=== PATIENT | female | born 1990 | race Caucasian/White ===

== ENCOUNTER 2018-12-03 11:03 | Outpatient (CLI) | payer OTHER, BC ==
[2018-12-03 11:53] VITALS: BP 128/76; PULSE 98; RESP 16; TEMP 96.3
--- NOTE | 2018-12-21 14:09 | P.MSEPDOC ---
Presenting Problems - Arrival Data Date of Arrival on Unit: 12/03/18 Time of Arrival on Unit: 11:03 Mode of Transport: Ambulatory - Complaint OB-Reason for Admission/Chief Complaint: Rule Out PROM Comment: Leaking for "several days" Medical History - Information : 2 Para: 1 Term: 1 : 0 Abortions: Spontaneous or Elective: 0 Number of Living Children: 1 - Gestational Age Gestational Age by DINESH (wks/days): 33 Weeks and 4 Days Review of Systems - Review of Systems Constitutional: No problems Breast: No problems ENT: No problems Cardiovascular: No problems Respiratory: No problems Gastrointestinal: No problems Genitourinary: No problems Musculoskeletal: No problems Neurological: No problems Skin: No problems Vital Signs - Temperature Temperature: 96.3 F Temperature Source: Temporal Artery Scan - Pulse Right Sitting Brachial Pulse Rate: 98 Pulse Assessment Method: Automatic Cuff - Respirations Respiratory Rate: 16 Oxygen Delivery Method: Room Air O2 Sat by Pulse Oximetry: 98 - Blood Pressure Right Arm Sitting Blood Pressure: 128/76 Blood Pressure Mean: 93 Blood Pressure Source: Automatic Cuff Medical Screen Scoring (Pre) - Cervical Exam Dilation: Exam Deferred Effacement: Exam Deferred Membranes: Intact - Uterine Contractions Frequency: N/A Duration: N/A Intensity: N/A - Maternal Vital Signs Maternal Temperature: N/A Maternal Blood Pressure: N/A Signs of Preeclampsia: N/A Maternal Respirations: N/A - Maternal Trauma Maternal Trauma: N/A - Assessment - Baby A Baseline FHR: 135 Heart Rate - NICHD Category: Category I (Normal) = 0 NST: Reactive Position: N/A Station: N/A - Total Score - Baby A Total Score - Baby A: 0 - Total Score - Baby B Total Score - Baby B: 0 - Total Score - Baby C Total Score - Baby C: 0 - Level of Risk - Baby A Level of Risk - Baby A: Low (0-5) - Level of Risk - Baby B Level of Risk - Baby B: Low (0-5) - Level of Risk - Baby C Level of Risk - Baby C: Low (0-5) Physician Notification (Pre) - Physician Notified Physician Notified Date: 12/03/18 Physician Notified Time: 11:41 Physician/Practitioner Notifed:: Sony Spoke With: Sony - Notification Comment Comment: Spk c\\Dr. Cardoza, advsd , 33 07/27, [place], pt of Dr. Marie in [place], presents with complaint of LOF for several days. Amnisure negative, reactive NST, white mucus present in vaginal canal, no odor, hx of BV in . States to d/c home, follow up with current OB. Disposition - Disposition OB Disposition: Discharge to home, Written follow up instructions reviewed Discharge Date: 12/03/18 Discharge Time: 11:45 I agree with the RN Medical Screening Exam: Yes Risk & Benefit of care provided described in d/c instruction: Yes Diagnosis: FALSE LABOR BEFORE 37 COMPLETED WEEKS OF GEST, THIRD TRI
== END 2018-12-03 11:45 | disposition home or self-care (01) ==
LOC: FBPOP 11:03
PROVIDERS: ATTEND Obstetrics & Gynecology Obstetrics
DX: O47.03 False labor before 37 completed weeks of gestation, third trimester (principal); Z3A.33 33 weeks gestation of pregnancy
CPT/HCPCS: 59025; 84112; G0463; 99213

== ENCOUNTER 2019-01-07 23:35 | Inpatient (IN) | payer BC, OTHER ==
[2019-01-08 01:53] LABS: Appearance,Urine Cloudy (Clear); Bacteria,Urine Few /hpf; Bilirubin,Urine Negative (Negative); Blood,Urine Large (Negative); Color,Urine Yellow; Glucose,Urine (UA) Negative (Negative); Ketones,Urine Negative (Negative); Leukocyte Esterase,Urine Large (Negative); Mucus,Urine Many /hpf; Nitrite,Urine Negative (Negative); PH, Urine 5.5 (5.0-8.0); Protein,Urine 1+ (Negative); RBC,Urine 177 /hpf (0-5); Specific Gravity,Urine 1.022 (1.001-1.035); Squamous Epithelial Cell,Urine 12 /hpf (0-4); Urobilinogen,Urine <2.0 mg/dL (<2.0); WBC,Urine >182 /hpf (0-5)
[2019-01-08 02:22] LABS: Basophils % (A) 0 %; Eosinophils % (A) 0 %; HCT 35.3 % (34.0-46.0); HGB 11.4 gm/dL (11.4-16.0); Lymphocytes # (A) 1.8 k/uL (1.0-4.8); Lymphocytes % (A) 16 %; MCH 29.7 pg (25.0-35.0); MCHC 32.4 g/dL (31.0-37.0); MCV 91.8 fL (80.0-100.0); Mean Platelet Volume 9.5; Monocytes # (A) 0.7 k/uL (0-1.0); Monocytes % (A) 6 %; Neutrophils # (A) 8.5 k/uL (1.3-7.7); Neutrophils % (A) 76 %; Platelet Count 143 k/uL (150-450); RBC 3.85 m/uL (3.80-5.40); RDW 13.5 % (11.5-15.5); WBC 11.3 k/uL (3.8-10.6)
[2019-01-08 02:40] LABS: ALT 18 U/L (9-52); AST 17 U/L (14-36); African American GFR (CKD) >90 (>60 ml/min/1.73 sqM); Blood Urea Nitrogen 9 mg/dL (7-17); LDH 393 U/L (313-618); Uric Acid 4.9 mg/dL (3.7-7.4)
[2019-01-08] MEDS ORDERED: METHYLERGONOVINE 0.2 MG/ML 1 ML AMP IM PRN (03:14)
[2019-01-08] MEDS ORDERED: LIDOCAINE 0.5% (PF) 5 MG/ML (50 ML SDV) SQ PRN (03:14)
[2019-01-08] MEDS ORDERED: CARBOPROST TROMETHAMINE 250 MCG/ML 1 ML AMP IM PRN (03:14)
[2019-01-08] MEDS ORDERED: TERBUTALINE 1 MG/ML VIAL SQ PRN (03:14)
[2019-01-08] MEDS ORDERED: OXYTOCIN 10 UNIT/ML 1 ML VIAL IM PRN (03:14)
[2019-01-08] MEDS ORDERED: LACTATED RINGERS 1,000 ML IV SCH (03:15)
[2019-01-08] MEDS ORDERED: OXYTOCIN 30 UNITS/500 ML NS 30 UNIT in SALINE 1 500ML.BAG IV SCH (03:15)
--- NOTE | 2019-01-08 03:28 | P.HPOB ---
History of Present Illness H&P Date: 01/08/19 Chief Complaint: Contractions, elevated blood pressure This patient is a 28-year-old 2 para 1 female with stated estimated date of confinement 01/17/2019 estimated gestational age 38-5/7 weeks who presents to labor and delivery with complaints of contractions. Patient's had no care here locally she states that she sees a doctor in [place] and was scheduled to be induced on Saturday secondary to hypertension. Patient presented to our labor and delivery because she did not feel that she could drive to [place]. Patient's cervix on admission was 3-4 cm dilated 70 irregular contractions or initial blood pressures were elevated with diastolics in the 90s. Patient states that her doctor did preeclampsia labs proximally 9 days ago that were normal but she's had some blood pressure elevations in the . Laboratory here shows platelets of 143 and 1+ protein, although the urine does appear to be contaminated. Since the patient is beyond 37 weeks and has elevated blood pressures, I have advised to proceed with delivery at this time. Recheck her cervix shows be 5 cm dilated she may be in early labor. Patient states that her care otherwise has been uncomplicated. I do not have a copy currently of her but I did call the hospital where she is going to deliver and I am having him fax me the results of her flow sheet. Review of Systems Genitourinary: Reports Menstruation: Reports amenorrhea Past Medical History Past Medical History: No Reported History History of Any Multi-Drug Resistant Organisms: None Reported Past Surgical History: No Surgical Hx Reported Past Anesthesia/Blood Transfusion Reactions: No Reported Reaction Past Psychological History: No Psychological Hx Reported Smoking Status: Never smoker Past Alcohol Use History: None Reported Past Drug Use History: None Reported - Past Family History Mother Family Medical History: Hypertension Medications and Allergies Home Medications Medication Instructions Recorded Confirmed Type Dfn-Qxiv-Wonzy Acid 1 each PO DAILY 09/28/13 01/08/19 History [-U Capsule (formulary)] Allergies Allergy/AdvReac Type Severity Reaction Status Date / Time No Known Allergies Allergy Verified 01/08/19 00:06 Exam Vital Signs Temp Pulse Resp BP 01/08/19 00:07 96.4 F L 90 16 135/91 Intake and Output 01/07/19 01/07/19 01/08/19 14:59 22:59 06:59 Other: Weight 99.79 kg - OBG Physical Exam Abdomen: bowel sounds normal, no diffuse tenderness, no bruit present, no guarding noted, no hepatomegaly, no splenomegaly, no mass Vulva: both: normal Vagina: normal moisture, no discharge Cervix: no lesion (5 cm 80% effaced -2 station), no discharge Uterus: enlarged Results Result Diagrams: 01/08/19 02:04 01/08/19 02:04 Abnormal Lab Results - Last 24 Hours (Table) 01/08/19 01/08/19 Range/Units 01:23 02:04 WBC 11.3 H (3.8-10.6) k/uL Plt Count 143 L (150-450) k/uL Neutrophils # 8.5 H (1.3-7.7) k/uL Urine Appearance Cloudy H (Clear) Urine Protein 1+ H (Negative) Urine Blood Large H (Negative) Ur Leukocyte Esterase Large H (Negative) Urine RBC 177 H (0-5) /hpf Urine WBC >182 H (0-5) /hpf Urine WBC Clumps Few H (None) /hpf Ur Squamous Epith Cells 12 H (0-4) /hpf Urine Bacteria Few H (None) /hpf Urine Mucus Many H (None) /hpf Assessment and Plan Assessment: This is a 28-year-old 2 para 1 female 38-5/7 weeks' gestation admitted to labor and delivery with complaint of contractions. Patient is possibly in early labor but she's had some elevated diastolic blood pressures and platelets 143 with 1+ proteinuria therefore recommended proceed with delivery or augmentat ion of labor. She's had no care here so we'll try to obtain those records. At this time are anticipating a vaginal delivery. (1) 38 weeks gestation of Current Visit: Yes Status: Acute Code(s): Z3A.38 - 38 WEEKS GESTATION OF SNOMED Code(s): 23793047 (2) Gestational hypertension Current Visit: Yes Status: Acute Code(s): O13.9 - GESTATIONAL HTN W/O SIGNI FICANT PROTEINURIA, UNSP TRIMESTER SNOMED Code(s): 048573339
--- NOTE | 2019-01-08 03:29 | P.MSEPDOC ---
Presenting Problems - Arrival Data Date of Arrival on Unit: 01/07/19 Time of Arrival on Unit: 23:39 Mode of Transport: Wheelchair - Complaint OB-Reason for Admission/Chief Complaint: Possible Onset of Labor Comment: contractions throughout day every 5 minutes for last few hours. Medical History - Information : 2 Para: 1 Term: 1 : 0 Abortions: Spontaneous or Elective: 0 Number of Living Children: 1 - Gestational Age Gestational Age by DINESH (wks/days): 38 Weeks and 5 Days Review of Systems - Review of Systems Constitutional: No problems Breast: No problems ENT: No problems Cardiovascular: No problems Respiratory: No problems Gastrointestinal: No problems Genitourinary: No problems Musculoskeletal: No problems Neurological: No problems Skin: No problems Vital Signs - Temperature Temperature: 96.4 F Temperature Source: Temporal Artery Scan - Pulse Right Sitting Brachial Pulse Rate: 90 Pulse Assessment Method: Automatic Cuff - Respirations Respiratory Rate: 16 Oxygen Delivery Method: Room Air - Blood Pressure Right Arm Sitting Blood Pressure: 135/91 Blood Pressure Mean: 105 Blood Pressure Source: Automatic Cuff Medical Screen Scoring (Pre) - Cervical Exam Dilation: 1-3 cm = 1 Effacement: More than 50% = 2 Membranes: Intact - Uterine Contractions Frequency: > or = 36 weeks =2 Duration: > 40 seconds = 2 Intensity: N/A - Maternal Vital Signs Maternal Temperature: N/A Maternal Blood Pressure: Diastolic > 89 = 1 Signs of Preeclampsia: N/A Maternal Respirations: N/A - Maternal Trauma Maternal Trauma: N/A - Assessment - Baby A Baseline FHR: 125 Heart Rate - NICHD Category: Category I (Normal) = 0 NST: Reactive Position: N/A Station: N/A - Total Score - Baby A Total Score - Baby A: 8 - Total Score - Baby B Total Score - Baby B: 8 - Total Score - Baby C Total Score - Baby C: 8 - Level of Risk - Baby A Level of Risk - Baby A: Medium (6-9) - Level of Risk - Baby B Level of Risk - Baby B: Medium (6-9) - Level of Risk - Baby C Level of Risk - Baby C: Medium (6-9) Physician Notification (Pre) - Physician Notified Physician Notified Date: 01/08/19 I agree with the RN Medical Screening Exam: Yes Risk & Benefit of care provided described in d/c instruction: Yes Diagnosis: GESTATIONAL HTN W/O SIGNIFICANT PROTEINURIA, THIRD TRIMESTER
[2019-01-08] MEDS ORDERED: AMPICILLIN 2,000 MG in SODIUM CHLORIDE 0.9% 100 ML IVPB ONE (03:30)
[2019-01-08 03:52] VITALS: BMI 34.4
[2019-01-08] MEDS ORDERED: BUTORPHANOL 1 MG/ML 1 ML VIAL IV PRN (04:17)
[2019-01-08] MEDS ORDERED: WITCH HAZEL 1 EACH MED..PAD TOPICAL PRN (05:33)
[2019-01-08] MEDS ORDERED: ACETAMINOPHEN TAB 325 MG TAB PO PRN (05:33)
[2019-01-08] MEDS ORDERED: BENZOCAINE/MENTHOL SPRAY 1 GM/SPRAY AEROSOL TOPICAL PRN (05:33)
[2019-01-08] MEDS ORDERED: diphenhydrAMINE 25 MG CAP PO PRN (05:33)
[2019-01-08] MEDS ORDERED: SIMETHICONE 80 MG CHEWABLE PO PRN (05:33)
[2019-01-08] MEDS ORDERED: ZOLPIDEM 5 MG TAB PO PRN (05:33)
[2019-01-08] MEDS ORDERED: HYDROCORTISONE 2.5% RECTAL CREAM 30 GM TUBE RECTAL PRN (05:33)
[2019-01-08] MEDS ORDERED: LANOLIN CREAM 5 GM TUBE TOPICAL PRN (05:33)
[2019-01-08] MEDS ORDERED: Rhogam IMMUNE GLOBULIN 1,500 UNIT/1 ML IM ONE (05:33)
[2019-01-08] MEDS ORDERED: diphenhydrAMINE 50 MG/ML 1 ML VIAL IVP PRN (05:33)
[2019-01-08] MEDS ORDERED: BISACODYL 10 MG SUPP RECTAL PRN (05:33)
--- NOTE | 2019-01-08 05:39 | P.PROBDLV ---
Vaginal Delivery Note - . Vaginal Delivery Note: Normal spontaneous vaginal delivery viable male infant Apgars 8 and 9 delivery time is 0512 hours. Please see dictated H&P for intimate details of this patient's admission. Brief summary is a 28-year-old 2 para 1 female 38-5/7 weeks who is admitted to this hospital with no care here for complaints of contractions found to have some mild blood pressure elevations. Patient is 5 cm dilated has artificial rupture membranes for clear fluid. Labor progresses and she received one dose of intrapartum Stadol. Patient gets to complete pushes the head to the perineum. Posterior perineum is supported we have controlled delivery of the infant's head over the intact perineum. Mouth and nares are bulb suctioned. There is no evidence of a nuchal cord. With gentle downward traction we have delivery the anterior and posterior shoulder and rest this infant's body. This is a vigorous viable male infant Apgars are 8 and 9 delivery time is 0512 hours. After delivery of the infant the umbilical cord is allowed to quit pulsating, it is then doubly clamped and cut. The placenta spontaneously delivered intact. Estimated blood loss is 150 mL. Inspection of perineum shows a left perineal laceration that is mobile first-degree in nature and is repaired with 3-0 Vicryl usual fashion excellent reapproximation is noted. Of note the patient did put her IV during pushing an IV was immediately placed and Pitocin started after delivery of the placenta. All counts are correct 3. There are no complications. and mother stable delivery room.
[2019-01-08] MEDS ORDERED: OXYTOCIN 20 UNITS/1000 ML NS 1,000 ML IV SCH (05:45)
[2019-01-08] MEDS ORDERED: AMPICILLIN 1,000 MG in SODIUM CHLORIDE 0.9% 50 ML IVPB SCH (07:30)
[2019-01-08] MEDS: SENNOSIDES-DOCUSATE SODIUM 1 EACH TAB PO SCH ×2 (12:35→19:10)
[2019-01-08] MEDS: IBUPROFEN 600 MG TAB PO PRN ×2 (12:42→19:09)
--- NOTE | 2019-01-09 06:33 | P.PNOBGVD ---
Subjective - Subjective Patient reports: Reports appetite normal, Reports voiding normally, Reports pain well controlled, Reports ambulating normally : doing well Objective - Latest Vital Signs Latest vital signs: Vital Signs Temp Pulse Resp BP Pulse Ox 01/09/19 00:00 97.9 F 80 16 130/76 97 01/08/19 16:00 99.1 F 142 H 50 H 01/08/19 12:00 98.6 F 85 16 139/76 01/08/19 07:34 97.8 F 85 16 136/82 01/08/19 07:00 98.1 F 86 16 129/78 Intake and Output 01/08/19 01/08/19 01/09/19 14:59 22:59 06:59 Other: # Voids 1 1 - Exam Lungs: bilateral: normal Chest: Normal S1, Normal S2 Extremities: Present: normal Abdomen: Present: normal appearance, soft Uterus: Present: normal, firm Assessment and Plan Assessment: day #1. Patient is resting without complaints and wishes to go home. Vital signs are stable she is afebrile. Uterus is firm nontender and she is having normal lochia. My impression is this is a normal course. Plan is to continue routine care discharge home today. Patient will follow up with her physician that she received her care with. (1) 38 weeks gestation of Current Visit: Yes Status: Acute Code(s): Z3A.38 - 38 WEEKS GESTATION OF SNOMED Code(s): 63256330 (2) Gestational hypertension Current Visit: Yes Status: Acute Code(s): O13.9 - GESTATIONAL HTN W/O SIGNIFICANT PROTEINURIA, UNSP TRIMESTER SNOMED Code(s): 424485332
--- NOTE | 2019-01-09 06:37 | P.DS ---
Providers Date of admission: 01/08/19 03:01 Expected date of discharge: 01/09/19 Attending physician: Caleb Cosby Primary care physician: Stated None - Discharge Diagnosis(es) (1) 38 weeks gestation of Current Visit: Yes Status: Acute (2) Gestational hypertension Current Visit: Yes Status: Acute Hospital Course: Please see dictated H&P for intimate details of this patient's admission. Brief summary this is a pleasant 28-year-old 2 para 1 female 38-5/7 weeks gest ation admitted to labor and delivery with complaints of contractions. Patient's not in labor but is found to have gestational hypertension therefore goes on to have induction/augmentation of labor for viable male infant. Please see dictated delivery note. 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 Procedures: Normal spontaneous vaginal delivery Patient Condition at Discharge: Good Plan - Discharge Summary New Discharge Prescriptions: New Ibuprofen [Motrin] 600 mg PO Q6HR PRN #30 tab PRN Reason: Mild Pain Or Fever >= 100.5 No Action Lsw-Bujn-Hoxjs Acid [-U Capsule (formulary)] 1 each PO DAILY Discharge Medication List Ugz-Izfd-Etveo Acid [-U Capsule (formulary)] 1 each PO DAILY 09/28/13 [History] Ibuprofen [Motrin] 600 mg PO Q6HR PRN #30 tab 01/09/19 [Rx] Patient Instructions/Handouts: Vaginal Delivery (DC) Activity/Diet/Wound Care/Special Instructions: No intercourse or anything per vagina for 6 weeks. Please call if any fever, chills, excessive vaginal bleeding, and/or abdominal pain. Please contact your primary physician for an appointment in 6 weeks for a check Discharge Disposition: HOME SELF-CARE
[2019-01-09] MEDS: SENNOSIDES-DOCUSATE SODIUM 1 EACH TAB PO SCH ×2 (08:25→20:20)
[2019-01-09] MEDS: IBUPROFEN 600 MG TAB PO PRN ×2 (14:16→20:20)
[2019-01-10] MEDS: SENNOSIDES-DOCUSATE SODIUM 1 EACH TAB PO SCH (08:26)
[2019-01-10 08:29] VITALS: BP 122/78; PULSE 86; RESP 18; TEMP 98.2
== END 2019-01-10 13:45 | disposition home or self-care (01) | DRG 807 ==
LOC: FBPOP 23:35 → 4FBP 01-08 03:01
PROVIDERS: ADMIT Obstetrics & Gynecology; ATTEND Obstetrics & Gynecology
PROC: 10E0XZZ Delivery of Products of Conception, External Approach (ICD-10-PCS; principal; 2019-01-08)
PROC: 0HQ9XZZ Repair Perineum Skin, External Approach (ICD-10-PCS; 2019-01-08)
DX: O13.4 Gestational [pregnancy-induced] hypertension without significant proteinuria, complicating childbirth (principal); Z37.0 Single live birth; O70.0 First degree perineal laceration during delivery; Z3A.38 38 weeks gestation of pregnancy; Z82.49 Family history of ischemic heart disease and other diseases of the circulatory system
CPT/HCPCS: 59025; 81001; 82565; 82570; 83615; 84112; 84156; 84450; 84460; 84520; 84550; 85025; 85461; 86850; 86900; 86901; 88307; 99215

== ENCOUNTER 2020-10-01 12:16 | Emergency (ER) | payer BC, OTHER ==
--- NOTE | 2020-10-01 12:38 | ED ---
Psych HPI - General Chief Complaint: Psychiatric Symptoms Stated Complaint: Mental Health Time Seen by Provider: 10/01/20 12:23 Source: patient, RN notes reviewed Mode of arrival: ambulatory - History of Present Illness Initial Comments: Is a 30-year-old female with a history of ADHD no definite past history of depression who states over last couple days she's been feeling very depressed tearful and was in the vault but she has no plan. She states been going through a situational problems with her he apparently quit his job 2 years ago and refuses to get another one unless the pain is well and off. She has other issues apparently. She does states she is not handling any stress well she locked herself in bathroom for several hours. She did finally called the helpline on her insurance card. She does smoke marijuana or she denies any other drug use. Does occasionally smoke cigarettes. MD Complaint: suicidal ideation, feels depressed - Related Data Home Medications Medication Instructions Recorded Confirmed No Known Home Medications 10/01/20 10/01/20 Allergies Allergy/AdvReac Type Severity Reaction Status Date / Time No Known Allergies Allergy Verified 10/01/20 13:26 Review of Systems ROS Statement: Those systems with pertinent positive or pertinent negative responses have been documented in the HPI. ROS Other: All systems not noted in ROS Statement are negative. Past Medical History Past Medical History: No Reported History History of Any Multi-Drug Resistant Organisms: None Reported Past Surgical History: No Surgical Hx Reported Past Anesthesia/Blood Transfusion Reactions: No Reported Reaction Past Psychological History: ADD/ADHD, Depression Smoking Status: Current every day smoker Past Alcohol Use History: None Reported Past Drug Use History: Marijuana - Past Family History Mother Family Medical History: Hypertension General Exam - General Exam Comments Initial Comments: This is a well-developed well-nourished awake alert oriented 3 female who is tearful during the evaluation Limitations: no limitations General appearance: alert, anxious Head exam: Present: atraumatic, normocephalic, normal inspection Eye exam: Present: normal appearance, PERRL, EOMI. Absent: scleral icterus, conjunctival injection, periorbital swelling ENT exam: Present: normal exam, mucous membranes moist Neck exam: Present: normal inspection. Absent: tenderness, meningismus, lymphadenopathy Respiratory exam: Present: normal lung sounds bilaterally. Absent: respiratory distress, wheezes, rales, rhonchi, stridor Cardiovascular Exam: Present: regular rate, normal rhythm, normal heart sounds. Absent: systolic murmur, diastolic murmur, rubs, gallop, clicks GI/Abdominal exam: Present: soft, normal bowel sounds. Absent: distended, tenderness, guarding, rebound, rigid Extremities exam: Present: normal inspection, full ROM, normal capillary refill. Absent: tenderness, pedal edema, joint swelling, calf tenderness Back exam: Present: normal inspection Neurological exam: Present: alert, oriented X3, CN II-XII intact Psychiatric exam: Present: depressed, suicidal ideation Skin exam: Present: warm, dry, intact, normal color. Absent: rash Course Vital Signs 10/01/20 12:17 Temperature 97.7 F Pulse Rate 92 Respiratory 18 Rate Blood Pressure 133/86 O2 Sat by Pulse 98 Oximetry Medical Decision Making - Medical Decision Making The patient was evaluated by psychiatric service and will be discharged home with care plan in outpatient treatment. He currently is not a risk to herself. Disposition Clinical Impression: Depression Disposition: HOME SELF-CARE Condition: Good Instructions (If sedation given, give patient instructions): Depression (ED) Is patient prescribed a controlled substance at d/c from ED?: No Referrals: None,Stated [Primary Care Provider] - 1-2 days
[2020-10-01 21:16] VITALS: BP 131/76; PULSE 70; RESP 16; TEMP 98.1
== END 2020-10-01 16:13 | disposition home or self-care (01) ==
LOC: EC 12:16
DX: F32.9 Major depressive disorder, single episode, unspecified (principal); R45.851 Suicidal ideations; F90.9 Attention-deficit hyperactivity disorder, unspecified type; F17.210 Nicotine dependence, cigarettes, uncomplicated; F12.90 Cannabis use, unspecified, uncomplicated
CPT/HCPCS: 82075; 99284